=== PATIENT | female | born 2000 | race African-American/Black ===

== ENCOUNTER 2021-02-03 09:10 | Emergency (ER) | payer OTHER ==
[~2021-02-03 09:10] MED LIST: NAPROXEN500 MG PO; PROMETHAZINE HC25 MG PR
[2021-02-03 10:54] LABS: BASOPHIL 0.3 % (0-2); BILIRUBIN NEGATIVE (NEGATIVE); BLOOD NEGATIVE Ery/uL (NEGATIVE); CLARITY CLEAR (CLEAR); COLOR YELLOW (YELLOW); GLUCOSE (U) NORMAL (NORMAL); HCT 34.6 % (37.0-47.0); HGB 11.5 g/dl (12.5-16.0); LEUKOCYTES NEGATIVE Leu/uL (NEGATIVE); LYMPHOCYTE 18.4 % (15-48); MCH 28.7 pg (25.0-31.0); MCHC 33.2 g/dL (32.0-36.0); MCV 86.3 fL (78.0-100.0); MONOCYTE 10.7 % (0-12); MPV 11.1 fL (6.0-9.5); NITRITE NEGATIVE (NEGATIVE); NRBC 0; PLT 198 K/uL (150-400); PROTEIN NEGATIVE (NEGATIVE); RBC 4.01 M/uL (4.20-5.40); RDW 12.3 % (11.5-14.0); WBC 8.6 K/uL (4.0-10.5)
[2021-02-03 11:05] LABS: CREATININE 0.57 mg/dL (0.51-0.95); POTASSIUM 3.3 mmol/L (3.5-5.1)
== END 2021-02-03 12:13 | disposition home or self-care (01) ==
LOC: FER 09:10
PROVIDERS: Emergency Medicine
DX: O99.891 Other specified diseases and conditions complicating pregnancy (principal); R53.83 Other fatigue; R42 Dizziness and giddiness; R53.1 Weakness; O21.9 Vomiting of pregnancy, unspecified; Z3A.29 29 weeks gestation of pregnancy
CPT/HCPCS: 36415; 80048; 81003; 85025; 99284; J7120

== ENCOUNTER 2021-07-16 20:27 | Emergency (ER) | payer OTHER ==
[2021-07-17] MEDS ORDERED: FLEXERIL5 MG PO (00:17)
== END 2021-07-17 00:40 | disposition home or self-care (01) ==
LOC: FER 20:27
DX: M54.6 Pain in thoracic spine (principal)
CPT/HCPCS: J1885